=== PATIENT | female | born 1945 | race Caucasian/White ===

== ENCOUNTER 2017-08-25 14:05 | Emergency (ER) | payer OTHER ==
[~2017-08-25] VITALS: Ht 172.7 cm; Wt 73.0 kg
[~2017-08-25 14:05] MED LIST: CITA20TA9 PO; DIVA500T2 PO; HYDR-3245 PO; HYDR-3307 PO; LISI5TAB7 PO; PARO20TA98 PO; SIMV5TAB PO
[2017-08-25 15:54] LABS: RAPID INFLUENZA A Negative (Negative); RAPID INFLUENZA B Negative (Negative)
[2017-08-25 16:45] VITALS: BP 147/60
== END 2017-08-25 16:54 | disposition home or self-care (01) ==
LOC: ED 16:40
DX: J20.8 Acute bronchitis due to other specified organisms (principal); B96.89 Other specified bacterial agents as the cause of diseases classified elsewhere; J18.9 Pneumonia, unspecified organism; M79.1 Myalgia; R19.7 Diarrhea, unspecified; E78.5 Hyperlipidemia, unspecified; E11.9 Type 2 diabetes mellitus without complications; I10 Essential (primary) hypertension
CPT/HCPCS: 36415; 71045; 80047; 87400